=== PATIENT | female | born 1985 | race Caucasian/White ===

== ENCOUNTER 2017-03-27 10:39 | Emergency (ER) ==
[2017-03-27 10:45] VITALS: BP 106/69; TEMP 99.3; BMI 35.2
--- NOTE | 2017-03-27 11:05 | ED.PDOC ---
General ED Provider: Dr. RINKU GILLESPIE JR Chief Complaint: Chest Wall Injury/Pain Stated Complaint: patient c/o pain to right side of her chest when she breathes. states she is coughing up "horrible tasting" green phlegm. states throat hurts from coughing. denies nasal congestion. unsure if she has run a fever. states no pain until she breathes[ End ]right [id number] 77 20 96% 106/ 69 7/10. 3 days Time Seen by Physician: 11:05 Mode of Arrival: Walk-In Information Source: Patient Exam Limitations: No limitations Primary Care Provider: RICHARD AKBAR Nursing and Triage Documentation Reviewed and Agree: No Review of Systems - Review Of Systems Constitutional: Reports: Malaise Eyes: Reports: No symptoms Ears, Nose, Mouth, Throat: Reports: No symptoms Respiratory: Reports: Cough Cardiac: Reports: Chest pain GI: Reports: No symptoms : Reports: No symptoms Musculoskeletal: Reports: No symptoms Skin: Reports: No symptoms Neurological: Reports: No symptoms Endocrine: Reports: No symptoms Hematologic/Lymphatic: Reports: No symptoms All Other Systems: Other Past Medical History - Past Medical History Previously Healthy: Yes Endocrine: Reports: None Cardiovascular: Reports: None Respiratory: Reports: None Hematological: Reports: None Gastrointestinal: Reports: None Genitourinary: Reports: UTI Neuro/Psych: Reports: None Musculoskeletal: Reports: None Cancer: Reports: None Last Menstrual Period: 3 weeks ago Other Pertinent Past Medical History: SPINA BIFIDA, methadone - Surgical History General Surgical History: Reports: None, Tubal ligation, (x4), Tonsillectomy - Family History Family History: Reports: None - Social History Smoking Status: Former smoker Hx Substance Use: No Alcohol Screening: None Physical Exam - Physical Exam Appearance: Well-appearing, No pain distress, Well-nourished, Obese Pain Distress: Moderate Eyes: WES, EOMI, Conjunctiva clear ENT: Ears normal, Nose normal, Oropharynx normal Neck: Supple Respiratory: Airway patent, Breath sounds clear, Breath sounds equal, Respirations nonlabored Cardiovascular: RRR, Pulses normal, No rub, No murmur GI/: Soft, Nontender, No masses, Bowel sounds normal, No Organomegaly Musculoskeletal: Normal strength, ROM intact, No edema, No calf tenderness Skin: Warm, Dry, Normal color Neurological: Sensation intact, Motor intact, Reflexes intact, Cranial nerves intact, Alert, Oriented Psychiatric: Affect appropriate, Mood appropriate Critical Care Note - Critical Care Note Total Time (mins): 0 Course - Course Orders, Labs, Meds: Orders Category Date Time Status SPUTUM CULTURE Stat LAB 03/27/17 11:18 Received CHEST, 2 VIEWS PA & LAT Stat RADS 03/27/17 10:59 Completed Vital Signs: Temp Pulse Resp BP Pulse Ox 03/27/17 10:41 99.3 F 77 20 106/69 96 Departure - Departure Time of Disposition: 11:29 Disposition: HOME SELF-CARE Discharge Problem: Pneumonia Qualifiers: Pneumonia type: due to unspecified organism Laterality: right Lung location: lower lobe of lung Qualifier Code: (J18.1) Lobar pneumonia, unspecified organism Instructions: Pneumonia (ED) Condition: Good Pt referred to PMD for follow-up: Yes Additional Instructions: antibiotic twice a day with food increase clear liquids may eat as tolerated but increse fluids recheck PMD one week return if fever over 101.0 if worsening Prescriptions: Amoxicillin/Potassium Clav [Augmentin 875-125 mg Tab] 1 tab PO BIDWM #14 tablet Guaifenesin/Codeine Phosphate [Robitussin AC Syrup] 10 ml PO Q6H PRN #240 ml PRN Reason: Cough Allergies/Adverse Reactions: Allergies NSAIDS (Non-Steroidal Anti-Inflamma Adverse Reaction (Verified 03/27/17 10:45) states low dose she can take but higher doses cause hives Home Medications: Ambulatory Orders Amoxicillin/Potassium Clav [Augmentin 875-125 mg Tab] 1 tab PO BIDWM #14 tablet 03/27/17 Guaifenesin/Codeine Phosphate [Robitussin AC Syrup] 10 ml PO Q6H PRN #240 ml Methadone HCl 120 mg PO DAILY 03/27/17
--- NOTE | 2017-03-27 11:22 | DI ---
EXAM: Two views of the chest. History: Cough. Findings: Heart size is normal. Right basilar consolidation and small right pleural effusion. No pneumothorax. No acute osseous abnormalities. 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 Impression: Right basilar pneumonia.
== END 2017-03-27 11:43 | disposition home or self-care (01) ==
LOC: ED 10:39
DX: J18.1 Lobar pneumonia, unspecified organism (principal)
CPT/HCPCS: 87070; 99283